=== PATIENT | male | born 1945 | race Caucasian/White ===

== ENCOUNTER 2024-10-29 14:12 | Emergency (ER) | payer MEDICARE, BC ==
[2024-10-29] MEDS ORDERED: HYDROCHLOROTH12.5 M1 PO (14:51)
[2024-10-29] MEDS ORDERED: COZAAR100 MG PO (14:51)
[2024-10-29] MEDS ORDERED: SERTRALINE HYD100 MG PO (14:52)
[2024-10-29] MEDS ORDERED: FLOMAX0.4 MG PO (14:52)
[2024-10-29] MEDS ORDERED: TOPROL XL100 MG PO (14:52)
[2024-10-29] MEDS ORDERED: XARELTO20 MG PO (14:53)
[2024-10-29] MEDS ORDERED: ACETAMINOPHEN650 M4 PO (14:56)
[2024-10-29] MEDS ORDERED: CALCIUM CARBONATE PO (14:58)
[2024-10-29 15:33] VITALS: BP 125/62
== END 2024-10-29 15:33 | disposition home or self-care (01) ==
LOC: ED 14:12
DX: M19.011 Primary osteoarthritis, right shoulder (principal); Z79.01 Long term (current) use of anticoagulants